=== PATIENT | male | born 1950 | race Caucasian/White ===

== ENCOUNTER 2017-12-12 07:06 | Emergency (ER) | payer MEDICARE ==
[2017-12-12 07:24] VITALS: BP 136/89
--- NOTE | 2017-12-12 07:33 | UC ---
Ear Complaint HPI - HPI Summary HPI Summary: left ear ringing for years decrease hearing right on his left ear no ear pain requesting physical therapy slip fro Tinnitus - History of Current Complaint Chief Complaint: UCGeneralIllness Stated Complaint: RINGING EARS/DR. NOTE FOR PT SCRIPT Time Seen by Provider: 12/12/17 07:23 Hx Obtained From: Patient Onset/Duration: Gradual Onset, Other - for years Severity Initially: Moderate Severity Currently: Moderate Aggravating Factors: Nothing Alleviating Factors: Nothing Associated Signs/Symptoms: Positive: Hearing Loss - left ear - Allergies/Home Medications Allergies/Adverse Reactions: Allergies Allergy/AdvReac Type Severity Reaction Status Date / Time No Known Allergies Allergy Verified 12/12/17 07:19 PMH/Surg Hx/FS Hx/Imm Hx Previously Healthy: Yes - Surgical History Surgical History: Yes Surgery Procedure, Year, and Place: Bilateral Carpal Tunnel Release, 2001 2009, [place]. Bilateral Ulnar Nerve Repair, 2001 2009, [place]. hernia repair-2 years ago and last on 6 weeks ago - Family History Known Family History: Negative: Diabetes - Social History Alcohol Use: None Substance Use Type: None Smoking Status (MU): Never Smoked Tobacco - Immunization History Most Recent Tetanus Shot: September 2012 Review of Systems Constitutional: Negative Skin: Negative Eyes: Negative ENT: Negative Respiratory: Negative Cardiovascular: Negative Gastrointestinal: Negative Is Patient Immunocompromised?: No All Other Systems Reviewed And Are Negative: Yes Physical Exam Triage Information Reviewed: Yes Appearance: Well-Appearing, No Pain Distress, Well-Nourished Vital Signs: Initial Vital Signs Temp 98 F 12/12/17 07:19 Pulse 75 12/12/17 07:19 Resp 18 12/12/17 07:19 BP 136/89 12/12/17 07:19 Eyes: Positive: Conjunctiva Clear ENT: Positive: Normal ENT inspection, Pharynx normal, Pharyngeal erythema, TM dull - left ear. Negative: Hearing grossly normal - decrease hearing left ear Neck exam: Normal Neck: Positive: Supple, Nontender, No Lymphadenopathy Respiratory: Positive: Chest non-tender, Lungs clear, Normal breath sounds Cardiovascular: Positive: RRR, No Murmur, Pulses Normal Ear Complaint Course/Dx - Differential Dx/Diagnosis Provider Diagnoses: Tinnitus left ear Discharge - Discharge Plan Condition: Stable Disposition: HOME Patient Education Materials: Tinnitus (ED) Referrals: No Primary Care Phys,NOPCP [Primary Care Provider] - If Needed
== END 2017-12-12 07:35 | disposition home or self-care (01) ==
LOC: UCCORT 07:06
DX: H93.12 Tinnitus, left ear (principal)
CPT/HCPCS: 99211; G0463

== ENCOUNTER 2019-02-27 19:02 | Emergency (ER) | payer MEDICARE ==
[2019-02-27 19:54] VITALS: BP 112/78
[2019-02-27] MEDS ORDERED: DOXYcycline CAP(*) 100 MG PO ONE (20:37)
--- NOTE | 2019-02-27 20:41 | UC ---
General HPI - HPI Summary HPI Summary: TICK ON L SIDE. FOUND IT AROUND 6:30PM. AREA IS SORE. UNABLE TO REACH IT FOR REMOVAL. NO FEVER, RASH OR JOINT PAIN. DURATION OF BITE IS NOT KNOWN. - History of Current Complaint Chief Complaint: [place] Stated Complaint: TICK Time Seen by Provider: 02/27/19 20:32 Hx Obtained From: Patient Pain Intensity: 0 - Allergy/Home Medications Allergies/Adverse Reactions: Allergies Allergy/AdvReac Type Severity Reaction Status Date / Time No Known Allergies Allergy Verified 02/27/19 19:50 PMH/Surg Hx/FS Hx/Imm Hx Previously Healthy: Yes - Surgical History Surgical History: Yes Surgery Procedure, Year, and Place: Bilateral Carpal Tunnel Release, 2001 2009, [place]. Bilateral Ulnar Nerve Repair, 2001 2009, [place]. hernia repair-2 years ago and last on 6 weeks ago - Family History Known Family History: Positive: Non-Contributory Negative: Diabetes - Social History Alcohol Use: None Substance Use Type: None Smoking Status (MU): Never Smoked Tobacco - Immunization History Most Recent Tetanus Shot: September 2012 Review of Systems All Other Systems Reviewed And Are Negative: Yes Physical Exam Triage Information Reviewed: Yes Appearance: Well-Appearing Vital Signs: Initial Vital Signs Temp 98.2 F 02/27/19 19:51 Pulse 72 02/27/19 19:51 Resp 16 02/27/19 19:51 BP 112/78 02/27/19 19:51 Pulse Ox 99 02/27/19 19:51 Vital Signs Reviewed: Yes Eyes: Positive: Conjunctiva Clear ENT: Positive: Normal ENT inspection Respiratory: Positive: No respiratory distress Musculoskeletal: Positive: ROM Intact Neurological: Positive: Alert Psychological: Positive: Age Appropriate Behavior Skin Exam: Normal, Other - Tick on L side of trunk. Course/Dx - Course Course Of Treatment: tick removed whole by this PA. area cleaned. - Diagnoses Provider Diagnosis: Tick bite Discharge - Sign-Out/Discharge Documenting (check all that apply): Patient Departure All imaging exams completed and their final reports reviewed: No Studies - Discharge Plan Condition: Stable Disposition: HOME Patient Education Materials: Tick Bite (ED) Referrals: FLORES Zamora [Medical Doctor] - If Needed - Billing Disposition and Condition Condition: STABLE Disposition: Home - Attestation Statements Provider Attestation: Per institutional requirements, I have reviewed the chart, however, I was not consulted specifically or made aware of this patient by the midlevel provider. I did not personally evaluate, interact with , or disposition this patient.
== END 2019-02-27 20:48 | disposition home or self-care (01) ==
LOC: UCCORT 19:02
DX: T14.8XXA Other injury of unspecified body region, initial encounter (principal); W57.XXXA Bitten or stung by nonvenomous insect and other nonvenomous arthropods, initial encounter; Y92.9 Unspecified place or not applicable
CPT/HCPCS: 99212; A9270-GY; G0463

== ENCOUNTER 2019-03-04 08:28 | Emergency (ER) | payer MEDICARE ==
[2019-03-04 09:39] VITALS: BP 117/72
--- NOTE | 2019-03-04 10:12 | UC ---
Throat Pain/Nasal Isaac HPI - HPI Summary HPI Summary: 68-year-old male presents with complaints of subjective fever, chills, night sweats, nasal congestion, and a productive cough for green sputum for past 3 days. Patient was seen here on 02/27/2019 for a tick bite. States he is unsure of how long the tick was embedded however reports tick was not engorged at the time of removal. He was treated prophylactically for Lyme disease with doxycycline 200 mg 1 dose. Denies ear pain, sore throat, chest pain, shortness of breath, abdominal pain, nausea, vomiting, diarrhea, rash, myalgias , joint pain or swelling. - History of Current Complaint Chief Complaint: UCRespiratory Stated Complaint: [place] (HAD TICK REMOVED 02/27/19) Time Seen by Provider: 03/04/19 09:59 Hx Obtained From: Patient Pain Intensity: 0 - Allergies/Home Medications Allergies/Adverse Reactions: Allergies Allergy/AdvReac Type Severity Reaction Status Date / Time No Known Allergies Allergy Verified 03/04/19 09:39 PMH/Surg Hx/FS Hx/Imm Hx Previously Healthy: Yes - Denies significant PMH - Surgical History Surgical History: Yes Surgery Procedure, Year, and Place: Bilateral Carpal Tunnel Release, 2001 2009, [place]. Bilateral Ulnar Nerve Repair, 2001 2009, [place]. hernia repair-2 years ago and last on 6 weeks ago - Family History Known Family History: Positive: Non-Contributory - Social History Occupation: Employed Full-time Lives: With Family Alcohol Use: None Substance Use Type: None Smoking Status (MU): Never Smoked Tobacco - Immunization History Most Recent Tetanus Shot: September 2012 Review of Systems All Other Systems Reviewed And Are Negative: Yes Constitutional: Positive: Fever - Subjective, Chills, Fatigue Skin: Negative: Rash Eyes: Negative: Drainage, Eye Redness ENT: Positive: Nasal Discharge, Sinus Congestion. Negative: Sore Throat, Ear Ache, Sinus Pain/Tenderness Respiratory: Positive: Cough - Productive green sputum. Negative: Shortness Of Breath Cardiovascular: Negative: Palpitations, Chest Pain Gastrointestinal: Negative: Abdominal Pain, Vomiting, Diarrhea, Nausea Genitourinary: Positive: Negative Musculoskeletal: Negative: Arthralgia, Myalgia Neurological: Positive: Negative Is Patient Immunocompromised?: No Physical Exam - Summary Physical Exam Summary: GENERAL APPEARANCE: Well developed, well nourished, alert and cooperative, and appears to be in no acute distress. EYES: Conjunctiva clear. No drainage. EARS: External auditory canals and tympanic membranes clear, hearing grossly intact. NOSE: Mild nasal congestion. No nasal discharge. THROAT: Pharyngeal cobblestoning. No tonsilar inflammation, swelling, exudate, or lesions. Uvula midline. Oral cavity normal. Teeth and gingiva in good general condition. NECK: Neck supple, non-tender without lymphadenopathy. CARDIAC: Normal S1 and S2. No S3, S4 or murmurs. Rhythm is regular. There is no peripheral edema, cyanosis or pallor. Extremities are warm and well perfused. Capillary refill is less than 2 seconds. Peripheral pulses intact. LUNGS: Clear to auscultation without rales, rhonchi, wheezing or diminished breath sounds. ABDOMEN: Positive bowel sounds. Soft, nondistended, nontender. No guarding or rebound. No masses or hepatosplenomegally. MUSKULOSKELETAL: ROM intact to all extremities. No joint erythema or tenderness. Normal muscular development. Normal gait. SKIN: Skin normal color, texture and turgor with no lesions or eruptions. Triage Information Reviewed: Yes Vital Signs: Initial Vital Signs Temp 99.3 F 03/04/19 09:32 Pulse 83 03/04/19 09:32 Resp 16 03/04/19 09:32 BP 117/72 03/04/19 09:32 Pulse Ox 96 03/04/19 09:32 Vital Signs Reviewed: Yes Throat Pain/Nasal Course/Dx - Course Course Of Treatment: 68-year-old male presents with complaints of subjective fever, chills, night sweats, nasal congestion, and a productive cough for green sputum for past 3 days. Patient was seen here on 02/27/2019 for a tick bite. States he is unsure of how long the tick was embedded however reports tick was not engorged at the time of removal. He was treated prophylactically for Lyme disease with doxycycline 200 mg 1 dose. Denies ear pain, sore throat, chest pain, shortness of breath, abdominal pain, nausea, vomiting, diarrhea, rash, myalgias , joint pain or swelling. Afebrile. Vital signs stable. Exam was unremarkable except for mild nasal congestion, pharyngeal cobblestoning without tonsillar swelling or exudate. Rapid flu was positive. Recommending symptomatic treatment at this time. He is to follow-up with his primary care provider in 7 days if symptoms do not improve. Anticipatory guidance and warning symptoms were reviewed with the patient. Verbalizes understanding and agrees with plan of care. - Differential Dx/Diagnosis Differential Diagnosis/HQI/PQRI: Influenza, Pharyngitis, Sinusitis, URI Provider Diagnosis: Influenza A Discharge - Sign-Out/Discharge Documenting (check all that apply): Patient Departure All imaging exams completed and their final reports reviewed: No Studies - Discharge Plan Condition: Stable Disposition: HOME Prescriptions: Benzonatate CAP* [Tessalon 100 MG CAP*] 100 mg PO TID PRN #30 cap PRN Reason: Cough Patient Education Materials: Influenza (ED) Referrals: No Primary Care Phys,NOPCP [Primary Care Provider] - Additional Instructions: Your flu test in the clinic today was positive for influenza A. Get plenty of rest. Drink plenty of fluids to avoid dehydration especially if you are running any fever. Take over the counter acetaminophen (Tylenol) or ibuprofen (Advil, Motrin) according to directions as needed for pain or fever. Take Tessalon Perles 1 cap every 8 hours as needed for cough. Use salt water gargles several times a day if you have a sore throat. You may also use Chloraseptic spray or Cepacol lonzenges according to directions which contain a numbing medication and can provide some temporary relief from your sore throat. Follow up with your primary care provider in 7 days if symptoms persist. Seek immediate medical attention in the emergency room if you have fever greater than 100.5 F despite taking acetaminophen or ibuprofen, have chest pain , difficulty breathing, are unable to swallow, or have any worsening of symptoms. - Billing Disposition and Condition Condition: STABLE Disposition: Home - Attestation Statements Provider Attestation: Per institutional requirements, I have reviewed the chart, however, I was not consulted specifically or made aware of this patient by the midlevel provider. I did not personally evaluate, interact with , or disposition this patient.
[2019-03-04 10:36] LABS: Influenza A Molecular POSITIVE (Negative)
== END 2019-03-04 10:50 | disposition home or self-care (01) ==
LOC: UCCORT 08:28
DX: J10.1 Influenza due to other identified influenza virus with other respiratory manifestations (principal)
CPT/HCPCS: 99212; G0463